=== PATIENT | female | born 1995 | race American Indian/Alaskan Native ===

== ENCOUNTER 2025-10-20 16:53 | Emergency (ER) | payer MEDICAID ==
[~2025-10-20] VITALS: Ht 154.9 cm; Wt 49.0 kg
[2025-10-20 16:56] VITALS: BP 139/90; PULSE 75; RESP 18; TEMP 97.8
--- NOTE | 2025-10-20 17:12 | ERN ---
General Chief Complaint: Face Pain/Problem Stated Complaint: NOSE FRACTURE Time Seen by MD: 16:54 Source: patient History of Present Illness Initial Comments Patient is a 30 y/o female coming in complaining of left-sided facial pain. Did question the mechanism of facial pain. She states he did not want to disclose. Allergies: Coded Allergies: No Known Drug Allergies (Unverified Allergy, Unknown, 10/20/25) Past Medical History Past Medical History: No Pertinent History Past Surgical History: None ROS Dictation CONSTITUTIONAL: No chills, no fever, no weakness, no diaphoresis, no malaise. HEAD/FACE: No signs of trauma. EENT: No eye pain, no blurred vision, no tearing, no double vision, no ear pain, no ear discharge, no nose pain, no nasal congestion, no throat pain, no t hroat swelling, no mouth pain. RESPIRATORY: No cough, no orthopnea, no SOB, no stridor, no wheezing. CARDIOVASCULAR: No chest pain, no edema, no palpitations, no syncope. GASTROINTESTINAL/ABDOMINAL: No abdominal pain, no constipation, no diarrhea, n o nausea, no vomiting. GENITOURINARY: No abnormal discharge, no dysuria, no frequent urination, no hematuria. No complaints of pain in the genitals. MUSCULOSKELETAL: No back pain, no gout, no joint pain, no joint swelling, no muscle pain, no muscle stiffness, no neck pain. INTEGUMENTARY: No change in color, no change in hair/nails, no dryness, no lesion, no lumps, no rash. NEUROLOGICAL/PSYCH: No anxiety, not depressed, no emotional problem, no headache, no numbness, no pre-existing deficit, no history of seizures, no tremors, no weakness. HEMATOLOGIC/LYMPHATIC: Not anemic, no history of blood clots, no apparent bleeding, no bruising, glands not swollen. All Systems Negative, Except as Noted. Physical Exam Physical Exam Dictation VITAL SIGNS: Reviewed. GENERAL APPEARANCE: Alert, oriented x3, no acute distress, obese. HEAD AND FACE: Non-traumatic. EYES: PERRL, pink conjunctivas, eyelid no trauma, anterior chamber clear. EARS: Pinnas intact and no signs of trauma or erythema. Ear canals clear and no discharge. TMs no erythema. NOSE: No discharge, no bleeding. OROPHARYNX: Mouth normal, teeth no caries, tongue pink. Pharynx clear, no erythema. Tonsils no exudates, no abscesses noted. Mucous membrane moist. NECK: Supple, non-tender, no thyromegaly, no masses, no JVD, no bruits. BREAST: Deferred. CHEST: No tenderness, no crepitus, no paradoxical movement, no retractions. LUNGS: Clear, well-ventilated, symmetric, no rales, no wheezing, no rhonchi, no stridor, good breath sounds bilaterally. HEART: Regular rate, regular rhythm, no murmur, no gallops. VASCULAR: No peripheral edema. ABDOMEN: Soft, positive bowel sounds, nondistended, no guarding, nontender, no rebound, no masses no hepatomegaly, no splenomegaly, no Zavaleta's sign, no hernias. RECTAL: Deferred. GENITAL: Deferred. NEUROLOGICAL: Normal speech, gross motor function intact, gross sensory function intact. MUSCULOSKELETAL: Neck nontender, full range of motion, back nontender, full range of motion. EXTREMITIES: Nontender, full range of motion. SKIN: Color pink, dry, no turgor, no rash, no lacerations, no abrasions, no contusions. LYMPHATICS: Deferred. VITAL SIGNS: Reviewed. GENERAL APPEARANCE: Alert, oriented x3, no acute distress, obese. HEAD AND FACE: Non-traumatic. EYES: PERRL, pink conjunctivas, eyelid no trauma, anterior chamber clear. EARS: Pinnas intact and no signs of trauma or erythema. Ear canals clear and no discharge. TMs no erythema. NOSE: No discharge, no bleeding. OROPHARYNX: Mouth normal, teeth no caries, tongue pink. Pharynx clear, no erythema. Tonsils no exudates, no abscesses noted. Mucous membrane moist. NECK: Supple, non-tender, no thyromegaly, no masses, no JVD, no bruits. BREAST: Deferred. CHEST: No tenderness, no crepitus, no paradoxical movement, no retractions. LUNGS: Clear, well-ventilated, symmetric, no rales, no wheezing, no rhonchi, no stridor, good breath sounds bilaterally. HEART: Regular rate, regular rhythm, no murmur, no gallops. VASCULAR: No peripheral edema. ABDOMEN: Soft, positive bowel sounds, nondistended, no guarding, nontender, no rebound, no masses no hepatomegaly, no splenomegaly, no Zavaleta's sign, no hernias. RECTAL: Deferred. GENITAL: Deferred. NEUROLOGICAL: Normal speech, gross motor function intact, gross sensory function intact. MUSCULOSKELETAL: Neck nontender, full range of motion, back nontender, full range of motion. EXTREMITIES: Nontender, full range of motion. SKIN: Color pink, dry, no turgor, no rash, no lacerations, no abrasions, no contusions. LYMPHATICS: Deferred. Results Laboratory and Microbiology Lab and Micro Result Laboratory Tests Test 10/20/25 17:08 Urine HCG, Qualitative NEGATIVE (NEGATIVE) Labs Reviewed?: Yes EKG/XRAY/US/CT/MRI CT Scan Comment [place] [address] [address] IMAGING REPORT Signed PATIENT: SHERRI CAMPA MR#: [id number] : 1995 SEX: F AGE: 30 LOCATION: [facility] ORDER 22 STATUS: REG REPORT#: [id number] SERVICE 21 REASON: left facial pain ORDERING PHYSICIAN: MICHI AMBROCIO MD PROCEDURE: MAXAmprius WO - CT MAXILLOFACIAL W/O CONTRAST EXAM: CT Maxillofacial Without IV contrast. CLINICAL HISTORY: Patient presents with left facial pain following injury. TECHNIQUE: Axial computed tomography images of the face without intravenous contrast. Sagittal and coronal reformatted images were generated. CONTRAST: None. COMPARISON: None provided. FINDINGS: BONES: Minimally displaced acute fracture in the left nasal bone. Nasal septum deviates to the left side with a small bony spur. Hypertrophied bilateral inferior turbinates. No additional acute fracture or aggressively appearing osseous lesion. The mandible is intact. SOFT TISSUES: Soft tissue swelling is present adjacent to the left side of the nose and in the maxillary region. The remaining soft tissues are unremarkable. No radiopaque foreign body or focal fluid collection seen. SINUSES: The sinuses are clear. ORBITS: The orbits are normal. No retrobulbar hematoma or mass. IMPRESSION: Minimally displaced acute fracture of the left nasal bone with adjacent soft tissue swelling. /[place] DICTATED BY: GARY GARCIA MD DATE: 10/20/251904 ELECTRONICALLY SIGNED BY: GARY GARCIA MD DATE: 10/20/251904 [facility] MDM: Differential diagnosis: Usable fracture, contusion, Rationale: Tests considered and ordered secondary to shared decision making include: Previous outside records reviewed: Old ER visits. Risk of complication and/or morbidity or mortality of patient management: None Medications-Per medication reconciliation Need for hospitalization: Patient does not meet criteria for hospitalization. Need for emergency major/minor surgery: No There are no social concerns with this patient. Prescription drug management Prescriptions will include symptomatic care Patient's prior external medical records from other ER visits were reviewed by me as indicated. Prior testing and results from previous visits were reviewed. Prior tests were taken into account with medical decision making and resource utilization, independent historian/historians were used to obtain complete medical history. I independently interpreted the test that were performed, results were reviewed by me and considered findings on radiology if ordered. Medical management and examination interpretation discussions were had by me with other qualified healthcare professionals as indicated for the patient's care. ED Course Orders Procedure Category Date Status Time ,Urine Test LAB 10/20/25 Complete 16:56 Ct Maxillofacial W/O CT 10/20/25 Resulted Contrast 17:22 Vital Signs Date Time Temp Pulse Resp B/P (MAP) Pulse Ox O2 Delivery O2 Flow Rate FiO2 10/20/25 16:56 97.9 75 18 139/90 99 0 DX & DISP Disposition: AMA Departure Impression: Primary Impression: Facial contusion Additional Impression: Nasal fracture Condition: Against Medical Advice Additional Instructions: Was notified by nursing staff the patient signed AMA forms she left without notifying me. MICHI AMBROCIO MD Oct 20, 2025 17:12
--- NOTE | 2025-10-20 17:58 | NUR ---
PT STATES SHE CANNOT WAIT FOR THE RESULTS TO DISCHARGE, STATED ( SHE NEEDS TO GET BACK HOME BEFOR HE DOES), PT APPEARED FEARFUL. STATES SHE WAS SORRY, STATED SHE WILL TRY TO COME BACK.PT SIGNED AMA FORM, EDILBERTO HUSSEIN AWARE.
--- NOTE | 2025-10-20 18:05 | HMCIMG ---
EXAM: CT Maxillofacial Without IV contrast. CLINICAL HISTORY: Patient presents with left facial pain following injury. TECHNIQUE: Axial computed tomography images of the face without intravenous contrast. Sagittal and coronal reformatted images were generated. CONTRAST: None. COMPARISON: None provided. FINDINGS: BONES: Minimally displaced acute fracture in the left nasal bone. Nasal septum deviates to the left side with a small bony spur. Hypertrophied bilateral inferior turbinates. No additional acute fracture or aggressively appearing osseous lesion. The mandible is intact. SOFT TISSUES: Soft tissue swelling is present adjacent to the left side of the nose and in the maxillary region. The remaining soft tissues are unremarkable. No radiopaque foreign body or focal fluid collection seen. SINUSES: The sinuses are clear. ORBITS: The orbits are normal. No retrobulbar hematoma or mass. IMPRESSION: Minimally displaced acute fracture of the left nasal bone with adjacent soft tissue swelling. /[place]
== END 2025-10-20 17:54 | disposition left against medical advice (07) ==
LOC: EDH 16:53
DX: S02.2XXA Fracture of nasal bones, initial encounter for closed fracture (principal); S00.83XA Contusion of other part of head, initial encounter; X58.XXXA Exposure to other specified factors, initial encounter; Y93.89 Activity, other specified; Y92.89 Other specified places as the place of occurrence of the external cause; Y99.8 Other external cause status
CPT/HCPCS: 70486; 81025; 99284